=== PATIENT | female | born 1985 | race Caucasian/White ===

== ENCOUNTER 2017-11-01 12:30 | Emergency (ER) | payer BC ==
--- OUTSIDE RECORDS SUMMARY | 2017-11-01 13:59 | XMS REPORT ---
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 ETOH Use Rare Use Of Alcohol Smoking Patient is a former smoker Recreational Drug Use Never Used Drugs Allergies, Adverse Reactions, Alerts Date Description Reaction Status Severity Comments 08/21/2017 NKDA active Medications Medication Date Status Form Strength Qnty SIG Indications Ordering Provider No Active 10/25/2017 Active Unknown Medications Nexplanon Hx Implant 68mg Unknown - 10/24/2017 Vital Signs Date Vital Result Comment 10/25/2017 Weight 208.00 lb Height 65 inches 5'5" BMI (Body Mass Index) 34.6 kg/m2 BP Systolic 104 mmHg BP Diastolic 67 mmHg Heart Rate 67 /min O2 % BldC Oximetry 98 % Body Temperature 97.9 F Pain Level 0 09/13/2017 Weight 217.00 lb Body Temperature 99.1 F 08/21/2017 Weight 217.38 lb Height 65 inches 5'5" BMI (Body Mass Index) 36.2 kg/m2 BP Systolic 119 mmHg BP Diastolic 82 mmHg Heart Rate 72 /min O2 % BldC Oximetry 99 % Body Temperature 98.3 F Pain Level 0 Results Test Date Test Result H/L Range Note Laboratory test 09/04/2017 Surgical Pathology SEE RESULT BELOW 1 finding 1 SEE RESULT BELOW Name: LISA JENSEN : [address]: Joaquín De Santiago MD Acct: [id number] Unit: [id number] AGE: 31 Location: [facility] Re09/04/17 SEX: F Status: REG REF SPEC: [id number] ROBERT: 09/04/[address] [facility] [address]: Joaquín De Santiago MD REQ: [id number] RECD: 09/04/17 STATUS: SOUT _ ORDERED: LEVEL 4 COMMENTS: [id number] FINAL DIAGNOSIS Skin, back, excisional biopsy: -- Compound melanocytic nevus. -- The lesion is excised in the planes of sectioning examined. CLINICAL HISTORY No history given GROSS DESCRIPTION The specimen is received in formalin labeled, Skin Mole on Back, and consists of a 0.6 cm wright-white circular skin punch excised to a depth of 0.6 cm with an eccentric 0.4 x 0.4 cm brown granular lesion. The specimen is trisected and submitted entirely in one cassette. Signed (signature on file) Basilia Marie MD 11/21 1131 END OF REPORT * ML=Testing performed at Main Lab DEPARTMENT OF PATHOLOGY, [address] [place] [address] Tommie Fuentes M.D. Director [facility] # [id number] Procedures Date CPT Code Description Status 09/04/2017 45181 Exc Other Benign Lesion Face,Eyelids,Ears,Nose,Lips Completed 0.5CM Or Less Encounters Type Date Location Provider CPT E/M Dx Office Visit 09/04/2017 10:00a [place] [address] I78.1 L73.2 Office Visit 08/21/2017 8:30a [place] [address] L73.2 I78.1 R23.8 Plan of Care 09/13/2017 - Joaquín De Santiago MDZ48.817 Encntr for surgical aftcr fol surgery on the skin, subcuComments:1) The pathology report was informed.2) The stitches were removed and Neosporin oint and BandAid applied.3) Possible recurrence in future warned.Recommendations:1) KdcrcvzL60.2 Hidradenitis suppurativaFollow up: RTO in a monthRecommendations:1) To avoid self manipulation 2) To wash the axillary skin with soap and water regularly and to keep it dry 3) If the thickening under the surface persist or worsening , might need excision for confirmation of diagnosis .
--- OUTSIDE RECORDS SUMMARY | 2017-11-01 13:59 | XMS REPORT ---
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 Director [facility] # [id number] Procedures Date CPT Code Description Status 09/04/2017 78685 Exc Other Benign Lesion Face,Eyelids,Ears,Nose,Lips Completed 0.5CM Or Less Encounters Type Date Location Provider CPT E/M Dx Office Visit 10/25/2017 8:00a [place] [address] Z48.817 Office Visit 09/04/2017 10:00a [place] [address] I78.1 L73.2 Office Visit 08/21/2017 8:30a [place] [address] L73.2 I78.1 R23.8 Plan of Care 10/25/2017 - Joaquín De Santiago MDZ48.817 Encntr for surgical aftcr fol surgery on the skin, subcuComments:1) The assessment was informed .Follow up:RTO prnRecommendations:1) To avoid squeezing or frequent touch of the skin in the axilla. 2) To continue monitor the skin pigmentations on the back
--- OUTSIDE RECORDS SUMMARY | 2017-11-01 14:00 | XMS REPORT ---
:1985 External Reference #:[id number] Author Organization [employer] [facility] Address [address] [address] Phone [phone] Care Team Providers Name Role Phone Marianna Burton M.D. Primary Care Physician Unavailable Payers Type Date Identification Numbers Payment Provider Subscriber Commercial Effective: Policy Number: [employer] BC/BS Of Lisa Fu 2017 [id number] [facility] PayID: [id number] [address] [address] RACHANA Dahl [address] Medigap Part B Expires: 2017 Policy Number: [id number] Medicaid [place] Lisa Fu PayID: [id number] [address] [place] [address] Commercial Effective: Policy Number: [employer] BC/BS Of Andrew Kramer 2001 [id number] CN Expires: 2004 Group Number: [id number] [address] [address] PayID: [id number] RACHANA Dahl [id number] Health Maintenance Expires: 11/04/2007 Policy Number: Total Care Lisa Fu Organization (HMO) [id number] [facility] PayID: [id number] [place] [address] Problems Date Description Provider Status Onset: 08/02/2001 Screening for malignant neoplasm of cervix Active Onset: 08/02/2001 Contraception care management Active Onset: 08/02/2001 Amenorrhea Active Family History Date Family Member(s) Problem(s) Comments Father Hypertension Mother Noncontributory Grandfather Skin Cancer Social History Type Date Description Comments Marital Status Legal Status: Lives With Children Lives With Spouse Smoke-Free Home is smoke-free Smoke-Free Work is smoke-free Work Status Full-Time Employment Abuse No history of abuse ETOH Use Rarely consumes alcohol Recreational Drug Use Denies Drug Use Smoking Patient is a former smoker quit 06/2017 Daily Caffeine Consumes on average 1 pot of regular coffee per day Daily Caffeine Consumes on average 3 cups of hot tea per day Exercise Type/Frequency Exercises regularly # Partners in a Lifetime 4 STD's No STD History Allergies, Adverse Reactions, Alerts Date Description Reaction Status Severity Comments 05/16/2012 NKDA active Medications Medication Date Status Form Strength Qnty SIG Indications Ordering Provider Diflucan 10/12/ Active Tablets 150mg 1tabs 1 by mouth B37.3 In [facility] 2017 every day Jacqui Damon Caffeine / Active Unknown 0000 / Active Unknown 0000 Keflex 08/01/ Hx Capsules 500mg 28caps four times L08.9 In [facility] 2016 a day Jacqui Damon Nitrofurantoin 10/07/ Hx Capsules 100mg 14caps 1 tab by N39.0 In [facility] Monohydrate/Macr 2014 mouth Jacqui Damon ocrystals twice a day Diflucan 07/28/ Hx Tablets 150mg 1tabs 1 po qd Yousuf, 2012 - Merry 02/16/ e, NIXON 2013 Implanon 06/12/ Hx Implant 68mg In [facility] 2011 Jacqui Damon Multivitamin 05/17/ Hx Yousuf, 2011 LUKASZ Pablo Diflucan 09/08/ Hx Tablets 150mg 2tabs 1 po now Yousuf, 2010 - with one Merry 05/17/ repeat in e, CNM 2011 4 days Cortisporin 09/08/ Hx Cream 0.5-0.5-10 30gm use Yousuf, 2010 - 000 sparingly Merry 05/17/ on inner e, CN 2011 thighs two times a day Urinary Pain / Hx Unknown Relief 0000 Nexplanon / Hx Unknown 0000 Medications Administered in Office Medication Date Status Form Strength Qnty SIG Indications Ordering Provider Injection 06/12 Administered Injection Kraen Medroxyprogesteron /2006 Naomi Walton Acetate For N M Contraceptive Use Immunizations CPT Code Status Date Vaccine Lot # [id number] Given 2005 Influenza Virus Split 3 Yrs And Above Dosage Vital Signs Date Vital Result Comment 10/12/2017 Height 65.25 inches 5'5.25" Weight 217.00 lb BP Systolic 110 mmHg BP Diastolic 66 mmHg BMI (Body Mass Index) 35.8 kg/m2 09/13/2017 Height 65.25 inches 5'5.25" Weight 215.00 lb BP Systolic 120 mmHg BP Diastolic 70 mmHg BMI (Body Mass Index) 35.5 kg/m2 08/14/2017 Height 65.25 inches 5'5.25" Weight 219.00 lb BP Systolic 120 mmHg BP Diastolic 70 mmHg BMI (Body Mass Index) 36.2 kg/m2 08/01/2017 Height 65.25 inches 5'5.25" Weight 214.50 lb BP Systolic 110 mmHg BP Diastolic 58 mmHg BMI (Body Mass Index) 35.4 kg/m2 09/21/2016 Height 65.25 inches 5'5.25" Weight 213.50 lb BP Systolic 120 mmHg BP Diastolic 68 mmHg BMI (Body Mass Index) 35.3 kg/m2 10/07/2015 Height 65.5 inches 5'5.50" Weight 212.00 lb BP Systolic 120 mmHg BP Diastolic 76 mmHg BMI (Body Mass Index) 34.7 kg/m2 07/22/2015 Height 64 inches 5'4" Weight 204.00 lb BP Systolic 120 mmHg BP Diastolic 68 mmHg BMI (Body Mass Index) 35.0 kg/m2 07/13/2015 Height 64 inches 5'4" Weight 207.00 lb BP Systolic 110 mmHg BP Diastolic 60 mmHg BMI (Body Mass Index) 35.5 kg/m2 06/04/2015 Height 64 inches 5'4" Weight 207.00 lb BP Systolic 122 mmHg BP Diastolic 62 mmHg BMI (Body Mass Index) 35.5 kg/m2 02/16/2014 Height 64.75 inches 5'4.75" Weight 192.00 lb BP Systolic 120 mmHg BP Diastolic 60 mmHg BMI (Body Mass Index) 32.2 kg/m2 07/28/2013 Height 64 inches 5'4" Weight 178.00 lb BP Systolic 122 mmHg BP Diastolic 62 mmHg BMI (Body Mass Index) 30.6 kg/m2 11/19/2012 Height 64 inches 5'4" Weight 174.00 lb BP Systolic 102 mmHg BP Diastolic 68 mmHg BMI (Body Mass Index) 29.9 kg/m2 08/30/2012 Height 64 inches 5'4" Weight 174.00 lb BP Systolic 110 mmHg BP Diastolic 58 mmHg BMI (Body Mass Index) 29.9 kg/m2 07/19/2012 Height 64 inches 5'4" Weight 165.00 lb BP Systolic 128 mmHg BP Diastolic 70 mmHg BMI (Body Mass Index) 28.3 kg/m2 07/16/2012 Height 64 inches 5'4" Weight 166.00 lb BP Systolic 120 mmHg BP Diastolic 76 mmHg BMI (Body Mass Index) 28.5 kg/m2 06/12/2012 Height 64 inches 5'4" Weight 166.00 lb BP Systolic 126 mmHg BP Diastolic 72 mmHg BMI (Body Mass Index) 28.5 kg/m2 05/17/2012 Height 64 inches 5'4" Weight 168.00 lb BP Systolic 120 mmHg BP Diastolic 62 mmHg BMI (Body Mass Index) 28.8 kg/m2 Results Test Date Test Result H/L Range Note Laboratory test 09/21/2016 Cytology SEE RESULT BELOW 1 finding Laboratory test 02/16/2014 Thyroid Stim 2.43 uIU/mL 0.49-4.67 finding Hormone Free T4 0.88 ng/dL 0.71-1.85 Laboratory test finding 02/16/2014 Cytology Pap See Note 2 Pap Plus HPV 11/19/2012 CoPathPlus HPV HR- 3 1 SEE RESULT BELOW Name: LISA FU : [address]: Niles Damon MD Acct: [id number] Unit: [id number] AGE: 30 Location: [facility] Re09/21/16 SEX: F Status: REG REF SPEC: [id number] ROBERT: 09/21/16-1205 [facility] DR: In Fifi Damon MD REQ: [id number] RECD: 09/21/16 STATUS: SOUT _ ORDERED: IMAGE ANALYSIS COMMENTS: [id number] FINAL DIAGNOSIS Negative for Intraepithelial lesion or Malignancy A. Ectocervical/Endocervical Specimen Adequacy: Satisfactory of evaluation Transformation zone component identified Patient Information: HPV: Thin Layer Pap Test w/reflex to high risk HPV RNA testing when ASCUS Actual Specimen Date: 09/21/16 LMP If Unknown: none with Nexplanon Signed (signature on file) KASSY Hyde(ASCP) 09/22 1355 This Pap test was evaluated with the assistance of the WellcoinPrep Test Imaging System. Due to cytologic findings at the welder microscope, comprehensive manual rescreening by a Pipe Stress Engineer may be required. The Pap Smear is a screening test designed to aid in the detection of premalignant and malignant conditions of the uterine cervix. It is not a diagnostic procedure and should not be used as the sole means of detecting cervical cancer. Both false- positive and false- negative reports do occur. Depending on your risk status, a Pap smear should be obtained and evaluated every 1-3 years. END OF REPORT * ML=Testing performed at Main Lab DEPARTMENT OF PATHOLOGY, [address] [place] [address] Tommie Fuentes M.D. Director [facility] # [id number] 2 Cytology Laboratory [address] [place] [address], [address] [place] [address] CYTOLOGY REPORT Name: Lisa Servin : 1985 (Age: 28) Sex: F Location: [facility] Med. Rec. # [id number] Date Collected: 02/16/2014 Billing #: [id number] Date Received: 02/16/2014 Requisition # [id number] Physician(s): DEMI TO CNM Source of Specimen: ENDOCERVICAL/ECTOCERVICAL THIN PREP Clinical Information: Date of Last Menstrual Period: None Provided Interpretation: NEGATIVE FOR INTRAEPITHELIAL LESION OR MALIGNANCY. Specimen Adequacy: SATISFACTORY FOR EVALUATION. Additional Findings: ENDOCERVICAL/TRANSFORMATION ZONE PRESENT. dcl Electronic Signature KASSY Caicedo (ASCP) Reported: 02/19/2014 [facility] Outreach Technical Laboratory [facility] ICD-9 Code(s) V76.2 3 Cytology Laboratory [address] [place] [address], [address] [place] [address] CYTOLOGY REPORT Name: Lisa Servin : 1985 (Age: 27) Sex: F Location: [facility] Rec. # [id number] Date Collected: 11/19/2012 Billing #: [id number] Date Received: 11/19/2012 Requisition # [id number] Physician(s): DEMI RUST RN MSN WHNP Source of Specimen: ENDOCERVICAL/ECTOCERVICAL THIN PREP Clinical Information: Date of Last Menstrual Period: 11/19/2012 Menstrual History: Irregular Hormonal History: Contraceptive: Implanon Specimen Adequacy: SATISFACTORY FOR EVALUATION. ADEQUATE ENDOCERVICAL/TRANSFORMATION ZONE. General Categorization: NEGATIVE FOR INTRAEPITHELIAL LESION OR MALIGNANCY. dcl Electronic Signature KASSY Caicedo (ASCP) Reported: 11/21/2012 Also seen by :KASSY Ibarra (ASCP) Cytology Outreach [facility] HPV High Risk Date Ordered: 11/20/2012 Status: Signed Out Date Reported: 11/21/2012 High Risk NEGATIVE (HPV types 16, 18, 31, 33, 35, 39, 45, 51, 52, 56, 58, 59, 66, 68) Cervista HPV HR Electronic Signature KASSY Ibarra (ASCP) Cytology Outreach [facility] ICD-9 Code(s) V72.31 Procedures Date CPT Code Description Status 09/13/2017 49975 Remove Contraceptive Capsule Completed 07/22/2015 99839 Insertion, Non Biodegradable Drug Delivery Implant Completed 07/22/2015 57101 Remove Contraceptive Capsule Completed 07/19/2012 07521 Insertion, Non Biodegradable Drug Delivery Implant Completed 07/19/2012 55425 Remove Contraceptive Capsule Completed 07/13/2010 18065 Colposcopy W/Biopsy (S) Cervix/Endocervical Curettage Completed 07/07/2010 44348 Echography Pelvic Complete Completed 08/05/2009 72278 Insertion, Non Biodegradable Drug Delivery Implant Completed 07/16/2009 25201 Care Completed 06/03/2009 56337 Obstetric Care Routine Completed 06/03/2009 16192 Curettage Completed 05/27/2009 43656 Antepartum Care 7 Or More Visits Completed 05/12/2009 77240 Antepartum Care 7 Or More Visits Completed 04/28/2009 74771 Antepartum Care 7 Or More Visits Completed 04/14/2009 16231 Antepartum Care 7 Or More Visits Completed 03/08/2009 85342 Antepartum Care 7 Or More Visits Completed 02/22/2009 39609 Antepartum Care 7 Or More Visits Completed 02/10/2009 03822 Antepartum Care 7 Or More Visits Completed 01/20/2009 57224 Echography Uterus Complete>14WKS. 0 Days Completed 01/13/2009 03895 Antepartum Care 7 Or More Visits Completed 12/16/2008 53791 Antepartum Care 7 Or More Visits Completed 11/13/2008 48185 Ultrasound < 14 Weeks Single Or First Gestation Completed 08/29/2007 26629 Subcutaneous Or Intramuscular Injection Completed 04/29/2007 39440 Care Only Completed 03/25/2007 88086 Obstetric Care Routine Completed 03/20/2007 11495 Echography Uterus Complete>14WKS. 0 Days Completed 03/12/2007 24217 Non-Stress Test Completed 11/23/2006 43734 Echography Uterus Complete>14WKS. 0 Days Completed 08/16/2006 25808 Ultrasound < 14 Weeks Single Or First Gestation Completed 12/21/2005 21304 Obstetric Care Routine Completed 08/04/2005 05733 Echography Uterus Complete>14WKS. 0 Days Completed 09/23/2004 52355 Echography Pelvic Complete Completed Encounters Type Date Location Provider CPT E/M Dx Office Visit 09/13/2017 10:45a Main Office In [facility] VenusClementina 88374 Z30.09 R20.0 Z30.46 Office Visit 08/14/2017 8:30a [facility] 29842 I88.9 L73.2 Office Visit 08/01/2017 8:30a [facility] 37008 L08.9 Office Visit 09/21/2016 11:30a [facility] 57085 Z30.09 Z01.419 Z64.1 Z12.4 Z30.2 Office Visit 10/07/2015 11:15a [facility] 87497 N39.0 Office Visit 07/22/2015 9:30a Main Office In [facility] VenusClementina 66260 V25.5 V25.43 V25.09 Office Visit 06/04/2015 8:30a Main Office In [place] VenusClementina 89666 V61.5 V25.2 Office Visit 02/16/2014 1:00p Main Office Lian To CNM 04352 V76.2 V72.31 783.1 V25.09 Office Visit 07/28/2013 10:15a Main Office Lian To CNM 34398 616.10 Office Visit 11/19/2012 9:00a Main Office HAYES Davey,MSN,RELIGIOUS ACTIVITIES DIRECTOR 13932 V72.31 V76.2 795.01 009.3 305.1 V25.43 Office Visit 08/30/2012 11:00a Main Office HAYES Davey,MSN,RELIGIOUS ACTIVITIES DIRECTOR 41134 611.79 V25.43 780.79 Office Visit 06/12/2012 8:45a Main Office In [place] VenusClementina 83894 V61.5 V25.2 Office Visit 05/17/2012 1:45p Main Office Lian To CNM 22440 795.06 Office Visit 09/21/2011 8:30a Main Office Lian To CNM 85565 V72.31 V76.2 626.0 Office Visit 09/08/2011 9:30[place] [address] 623.8 788.1 Office Visit 06/28/2010 3:45p Main Office In Fifi Damon M.D. 42993 626.4 626.7 Office Visit 04/21/2010 3:15p Main Office In Fifi Damon M.D. 70854 625.8 626.2 Office Visit 02/01/2010 11:00a Main Office Denise Valle NP,MSN,[facility] 42490 616.10 Office Visit 08/05/2009 11:30a Main Office Demi Rust, RNC,MSN,RELIGIOUS ACTIVITIES DIRECTOR 49921 V25.5 Office Visit 07/16/2009 3:20p Main Office Lian To CNM 02513 V24.2 V25.09 Office Visit 11/17/2008 1:15p Main Office In Fifi Damon M.D. 45049 649.03 V22.1 Office Visit 02/16/2005 10:15a Main Office Chantel Mcintyre M.D. PhD 01896 628.8 Office Visit 01/04/2005 10:45a Main Office In Fifi Damon M.D. 73038 628.8 Office Visit 11/09/2004 4:00p Main Office In Fifi Damon M.D. 20748 628.8 616.10 Office Visit 09/15/2004 1:15p Main Office In Fifi Damon M.D. 95207 628.8 Plan of Care 10/12/2017 - In Fifi Damon M.D.N77.1 Vaginitis, vulvitis and vulvovaginitis in dis classd uecvtcN14.3 Candidiasis of vulva and vaginaNew Medication:Diflucan 150 mg
[2017-11-01 14:06] VITALS: BP 147/75
--- NOTE | 2017-11-01 14:16 | UC ---
Skin Complaint HPI - HPI Summary HPI Summary: has had a itchy rash for a few days neck, abdomen, groin, itchy red---no one else with rash in family is not otherwise ill has no fever - History of Current Complaint Chief Complaint: UCRash Time Seen by Provider: 11/01/17 14:03 Stated Complaint: RASH Hx Obtained From: Patient Hx Last Menstrual Period: 10/19/17 ?: No Onset/Duration: Sudden Onset, Lasting Days - 3 Timing: Constant Onset Severity: Mild Current Severity: Mild Location: Generalized Aggravating Factor(s): Other - heat Alleviating Factor(s): Nothing - has only taken 2 benadryl and 2 does of prednisone Associated Signs & Symptoms: Positive: Rash - Allergy/Home Medications Allergies/Adverse Reactions: Allergies Allergy/AdvReac Type Severity Reaction Status Date / Time seasonal allergy Allergy runny eyes Uncoded 11/01/17 13:58 Home Medications: Home Medications Naproxen Sodium [Naproxen Sodium 220 mg] 440 mg PO BID PRN 11/01/17 [History Confirmed 11/01/17] diPHENhydraMINE PO* [Benadryl PO 25 MG TAB*] 25 mg PO Q6H PRN 11/01/17 [History Confirmed 11/01/17] predniSONE TAB* [Deltasone TAB*] 10 mg PO DAILY 11/01/17 [History Confirmed ] Review of Systems Constitutional: Negative Skin: Rash - itchy, red, macular rash Eyes: Negative ENT: Negative Respiratory: Negative Cardiovascular: Negative Gastrointestinal: Negative Genitourinary: Negative Motor: Negative Neurovascular: Negative Musculoskeletal: Negative Neurological: Negative Psychological: Negative Is Patient Immunocompromised?: No All Other Systems Reviewed And Are Negative: Yes PMH/Surg Hx/FS Hx/Imm Hx Previously Healthy: Yes - Surgical History Surgical History: Yes Surgery Procedure, Year, and Place: tonsils as child, placenta removed after chilbirth - Family History Known Family History: Positive: None - Social History Occupation: Employed Full-time Lives: With Family Alcohol Use: Occasionally Substance Use Type: None Smoking Status (MU): Never Smoked Tobacco Type: Cigarettes Amount Used/How Often: 1/2 PPD Have You Smoked in the Last Year: Yes Household Exposure Type: Cigarettes Physical Exam Triage Information Reviewed: Yes Appearance: Well-Appearing, No Pain Distress, Well-Nourished Vital Signs: Initial Vital Signs Temp 98.7 F 11/01/17 14:02 Pulse 75 11/01/17 14:02 Resp 18 11/01/17 14:02 BP 147/75 11/01/17 14:02 Vital Signs Reviewed: Yes Eye Exam: Normal Eyes: Positive: Conjunctiva Clear ENT Exam: Normal ENT: Positive: Normal ENT inspection, Hearing grossly normal, Pharynx normal. Negative: Nasal congestion, Trismus, Muffled voice, Hoarse voice, Sinus tenderness Dental Exam: Normal Neck exam: Normal Neck: Positive: Supple, Nontender, No Lymphadenopathy Respiratory Exam: Normal Respiratory: Positive: Chest non-tender, Lungs clear, Normal breath sounds, No respiratory distress, No accessory muscle use Cardiovascular Exam: Normal Cardiovascular: Positive: RRR, No Murmur, Pulses Normal, Brisk Capillary Refill Musculoskeletal Exam: Normal Musculoskeletal: Positive: Strength Intact, ROM Intact, No Edema Neurological Exam: Normal Neurological: Positive: Alert, Muscle Tone Normal Psychological Exam: Normal Skin: Positive: Other - macular ramiro rash left wrist, nap of neck abdomen groin Course/Dx - Course Course Of Treatment: prednisone, pepcid, zyrtec, change benadryl to vistaril follow with neuro psych sales specialist - Diagnoses Provider Diagnoses: Idopathic urticaria Discharge - Discharge Plan Condition: Stable Disposition: HOME Prescriptions: Famotidine TAB 40 MG(NF) [Pepcid TAB 40 MG(NF)] 40 mg PO DAILY #14 tab Hydroxyzine Pamoate [Vistaril] 25 - 50 mg PO QID #30 cap Patient Education Materials: Prednisone (By mouth), Urticaria (ED) Referrals: Andrés Diggs MD [Medical Doctor] - 1 Week
== END 2017-11-01 14:39 | disposition home or self-care (01) ==
LOC: UCCORT 12:30
DX: L50.1 Idiopathic urticaria (principal); Z91.048 Other nonmedicinal substance allergy status
CPT/HCPCS: 99212; G0463

== ENCOUNTER 2018-05-02 08:51 | Emergency (ER) | payer BC ==
[2018-05-02 09:09] VITALS: BP 107/68
--- NOTE | 2018-05-02 09:11 | UC ---
Respiratory Complaint HPI - HPI Summary HPI Summary: 32 year old with URI concerns. "Head cold" one week ago; treated with Sudafed and improved for one day before worsening three days ago. Subjective fever, head congestion, hoarse voice, mostly nonproductive and painful cough, myalgias , and chills for three to four days. woks at snf. no fever. [ End ] - History of Current Complaint Chief Complaint: UCRespiratory Stated Complaint: CONGESTION, COUGH Time Seen by Provider: 05/02/18 09:10 Hx Obtained From: Patient Hx Last Menstrual Period: 04/25/18 Onset/Duration: Gradual Onset Timing: Constant Severity Initially: Mild Severity Currently: Moderate Pain Intensity: 5 Character: Cough: Nonproductive Associated Signs And Symptoms: Positive: URI, Nasal Congestion, Hoarseness. Negative: Wheezing - Allergies/Home Medications Allergies/Adverse Reactions: Allergies Allergy/AdvReac Type Severity Reaction Status Date / Time No Known Allergies Allergy Verified 05/02/18 09:03 Home Medications: Home Medications Benzonatate CAP* [Tessalon 100 MG CAP*] 100 - 200 mg PO TID PRN 05/02/18 [ History Confirmed 05/02/18] D-Methorphan/PE/Acetaminophen [Tylenol Cold Multi-Symp Caplet] 1 each PO Q4H PRN 05/02/18 [History Confirmed 05/02/18] GuaiFENesin DM* [Robitussin DM*] 10 ml PO Q4H PRN 05/02/18 [History Confirmed ] Ibuprofen TAB* [Advil TAB*] 800 mg PO Q8H PRN 05/02/18 [History Confirmed ] PMH/Surg Hx/FS Hx/Imm Hx Previously Healthy: Yes - Surgical History Surgical History: Yes Surgery Procedure, Year, and Place: tonsils as child, placenta removed after chilbirth - Family History Known Family History: Positive: None - Social History Occupation: Employed Full-time Lives: With Family Alcohol Use: Rare Substance Use Type: None Smoking Status (MU): Former Smoker Type: Cigarettes Amount Used/How Often: 1/2 PPD Length of Time of Smoking/Using Tobacco: ~1 PPD x 15+ Years Have You Smoked in the Last Year: Yes When Did the Patient Quit Smoking/Using Tobacco: 2017 Household Exposure Type: Cigarettes Review of Systems Constitutional: Fatigue Skin: Negative Eyes: Negative ENT: Sore Throat, Nasal Discharge, Sinus Congestion, Sinus Pain/Tenderness Respiratory: Cough Cardiovascular: Negative Gastrointestinal: Negative Genitourinary: Negative Motor: Negative Neurovascular: Negative Musculoskeletal: Negative Neurological: Negative Psychological: Negative Is Patient Immunocompromised?: No All Other Systems Reviewed And Are Negative: Yes Physical Exam Triage Information Reviewed: Yes Appearance: Well-Appearing, No Pain Distress, Well-Nourished Vital Signs: Initial Vital Signs Temp 98.6 F 05/02/18 09:00 Pulse 80 05/02/18 09:00 Resp 16 05/02/18 09:00 BP 107/68 05/02/18 09:00 Pulse Ox 100 05/02/18 09:00 Eye Exam: Normal ENT Exam: Normal ENT: Positive: TM dull - r>l Dental Exam: Normal Neck exam: Normal Neck: Positive: 1 Respiratory Exam: Normal Cardiovascular Exam: Normal Abdominal Exam: Normal Musculoskeletal Exam: Normal Neurological Exam: Normal Psychological Exam: Normal Skin Exam: Normal UC Diagnostic Evaluation - Laboratory O2 Sat by Pulse Oximetry: 100 Respiratory Course/Dx - Course Course Of Treatment: viral -- supportive treatment at this time. - Differential Dx/Diagnosis Differential Diagnosis/HQI/PQRI: Bronchitis, Influenza, Lower Resp Infection, Sinusitis Provider Diagnoses: URI Discharge - Sign-Out/Discharge Documenting (check all that apply): Discharge/Admit/Transfer - Discharge Plan Condition: Good Disposition: HOME Prescriptions: Albuterol Sulfate [Proventil Hfa] 6.7 gm IH Q4H PRN #1 [id number] PRN Reason: Sob/Wheezing Benzonatate CAP* [Tessalon 100 MG CAP*] 100 mg PO TID PRN #20 cap PRN Reason: Cough Patient Education Materials: Upper Respiratory Infection (ED) Forms: *Work Release Referrals: Marianna Burton MD [Primary Care Provider] - 4 Days - Billing Disposition and Condition Condition: GOOD Disposition: Home
== END 2018-05-02 09:24 | disposition home or self-care (01) ==
LOC: UCCORT 08:51
DX: J06.9 Acute upper respiratory infection, unspecified (principal); Z87.891 Personal history of nicotine dependence
CPT/HCPCS: 99212; G0463

== ENCOUNTER 2018-08-08 11:00 | Emergency (ER) | payer BC ==
[2018-08-08 12:16] VITALS: BP 119/76
--- NOTE | 2018-08-08 12:39 | UC ---
Shoulder Pain HPI - HPI Summary HPI Summary: The patient is a 32-year-old female with left trapezius pain for 2-3 weeks. She is right handed. He does not recall any injury. He has minimal relief with Motrin and heat. Initially she has some pain radiating down her left arm. It is causing some neck pain and a tension headache. She denies any history of neck injury. - History of Current Complaint Chief Complaint: UCUpperExtremity Stated Complaint: NECK, UPPER BACK PAIN Time Seen by Provider: 08/08/18 12:14 Hx Obtained From: Patient Hx Last Menstrual Period: 07/29/18 Onset/Duration: Gradual Onset, Lasting Weeks Timing: Constant Severity Initially: Moderate Severity Currently: Moderate Pain Intensity: 5 Pain Scale Used: 0-10 Numeric Character: Aching, Throbbing, Spasmodic Aggravating Factor(s): Movement Alleviating Factor(s): Rest, OTC Meds Associated Signs And Symptoms: Positive: Negative Related History: Dominant Hand Right Torso: 1 - pain - Allergies/Home Medications Allergies/Adverse Reactions: Allergies Allergy/AdvReac Type Severity Reaction Status Date / Time No Known Allergies Allergy Verified 08/08/18 12:11 Home Medications: Home Medications Methyl Salicylate/Menthol [Muscle Rub Cream] 1 applic TOPICAL SEE INSTRUCTIONS PRN 08/08/18 [History Confirmed 08/08/18] PMH/Surg Hx/FS Hx/Imm Hx Previously Healthy: Yes - Surgical History Surgical History: Yes Surgery Procedure, Year, and Place: tonsils as child, placenta removed after chilbirth - Family History Known Family History: Positive: Hypertension - Social History Alcohol Use: Rare Substance Use Type: None Smoking Status (MU): Former Smoker Type: Cigarettes Amount Used/How Often: 1/2 PPD Length of Time of Smoking/Using Tobacco: ~1 PPD x 15+ Years Have You Smoked in the Last Year: Yes When Did the Patient Quit Smoking/Using Tobacco: 2017 Household Exposure Type: Cigarettes Review of Systems Constitutional: Negative Skin: Negative Eyes: Negative ENT: Negative Respiratory: Negative Cardiovascular: Negative Gastrointestinal: Negative Genitourinary: Negative Motor: Negative Neurovascular: Negative Musculoskeletal: Arthralgia Neurological: Headache Psychological: Negative Is Patient Immunocompromised?: No All Other Systems Reviewed And Are Negative: Yes Physical Exam Triage Information Reviewed: Yes Appearance: Well-Appearing, No Pain Distress, Well-Nourished Vital Signs: Initial Vital Signs Temp 98 F 08/08/18 12:09 Pulse 80 08/08/18 12:09 Resp 16 08/08/18 12:09 BP 119/76 08/08/18 12:09 Pulse Ox 100 08/08/18 12:09 Vital Signs Reviewed: Yes Eyes: Positive: Conjunctiva Clear ENT: Positive: Hearing grossly normal. Negative: Nasal congestion, Nasal drainage, Tonsillar swelling, Tonsillar exudate Neck: Positive: Supple - trapezius, Tenderness @, Other: - decreased ROM Respiratory: Positive: Lungs clear, Normal breath sounds, No respiratory distress, No accessory muscle use Cardiovascular: Positive: RRR, No Murmur Musculoskeletal: Positive: ROM Intact Neurological: Positive: Alert Psychological Exam: Normal Skin Exam: Normal Shoulder Course/Dx - Differential Dx/Diagnosis Provider Diagnoses: left trapesius strain Discharge - Sign-Out/Discharge Documenting (check all that apply): Patient Departure All imaging exams completed and their final reports reviewed: No Studies - Discharge Plan Condition: Stable Disposition: HOME Prescriptions: Cyclobenzaprine TAB* [Flexeril TAB*] 5 mg PO TID PRN #12 tab PRN Reason: Spasms Patient Education Materials: Muscle Strain (ED) Referrals: Marianna Burton MD [Primary Care Provider] - 1 Week Additional Instructions: PT consult aleve 2 pills twice daily for pain muscle relaxant may cause drowsiness - Billing Disposition and Condition Condition: STABLE Disposition: Home
== END 2018-08-08 12:51 | disposition home or self-care (01) ==
LOC: UCCORT 11:00
DX: S29.012A Strain of muscle and tendon of back wall of thorax, initial encounter (principal); Z87.891 Personal history of nicotine dependence
CPT/HCPCS: 99212; G0463

== ENCOUNTER 2018-12-25 12:14 | Emergency (ER) | payer BC ==
[2018-12-25 12:58] VITALS: BP 120/68
--- NOTE | 2018-12-25 13:28 | UC ---
UC General HPI - HPI Summary HPI Summary: headache, bodyaches, fever/chills, cough and head congestion x 3 days. + scratchy throat. 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 - History of Current Complaint Chief Complaint: UCRespiratory Stated Complaint: ST,FEVER,COUGH Time Seen by Provider: 12/25/18 13:22 Hx Obtained From: Patient Hx Last Menstrual Period: 11/16/18 Onset/Duration: Gradual Onset Timing: Constant Pain Intensity: 5 Associated Signs & Symptoms: Negative: Chest Pain, Diarrhea, SOB, Vomiting - Allergy/Home Medications Allergies/Adverse Reactions: Allergies Allergy/AdvReac Type Severity Reaction Status Date / Time No Known Allergies Allergy Verified 12/25/18 12:56 Home Medications: Home Medications Acetaminophen [Acetaminophen Extra Strength] 1,000 mg PO Q6HR PRN 12/25/18 [ History Confirmed 12/25/18] PMH/Surg Hx/FS Hx/Imm Hx - Additional Past Medical History Additional PMH: 5-6 weeks - Surgical History Surgical History: Yes Surgery Procedure, Year, and Place: tonsils as child, placenta removed after chilbirth - Family History Known Family History: Positive: None, Hypertension - Social History Alcohol Use: None Substance Use Type: None Smoking Status (MU): Former Smoker Type: Cigarettes Amount Used/How Often: 1/2 PPD Length of Time of Smoking/Using Tobacco: ~1 PPD x 15+ Years Have You Smoked in the Last Year: Yes When Did the Patient Quit Smoking/Using Tobacco: 2017 Household Exposure Type: Cigarettes Review of Systems All Other Systems Reviewed And Are Negative: Yes Constitutional: Positive: Fever, Chills Skin: Positive: Negative Eyes: Positive: Negative ENT: Positive: Sore Throat - scratchy, Sinus Congestion Respiratory: Positive: Cough Cardiovascular: Positive: Negative Gastrointestinal: Positive: Negative Genitourinary: Positive: Negative Motor: Positive: Negative Neurovascular: Positive: Negative Musculoskeletal: Positive: Myalgia Neurological: Positive: Headache Psychological: Positive: Negative Physical Exam Triage Information Reviewed: Yes Appearance: Well-Appearing Vital Signs: Initial Vital Signs Temp 98.6 F 12/25/18 12:52 Pulse 90 12/25/18 12:52 Resp 16 12/25/18 12:52 BP 120/68 12/25/18 12:52 Pulse Ox 100 12/25/18 12:52 Vital Signs Reviewed: Yes Eyes: Positive: Conjunctiva Clear ENT: Positive: Pharynx normal, TMs normal. Negative: Nasal drainage, Sinus tenderness Neck: Positive: Supple, Nontender, No Lymphadenopathy Respiratory: Positive: Lungs clear, Normal breath sounds, No respiratory distress Cardiovascular: Positive: RRR, No Murmur Abdomen Description: Positive: Nontender, No Organomegaly, Soft Bowel Sounds: Positive: Present Musculoskeletal: Positive: ROM Intact Neurological: Positive: Alert Psychological: Positive: Age Appropriate Behavior Skin Exam: Normal Skin: Negative: Rashes Diagnostics - Laboratory Diagnostic Studies Completed/Ordered: rapid flu=neg. Course/Dx - Differential Dx - Multi-Symptom Differential Diagnoses: Other - non toxic. no concern for pneumonia. the rapid influenza was negative; however, the pt's s/s's are c/w local influenza plus pt is high risk due to thus will tx with Tamiflu. also, the influenza test is not 100%. - Diagnoses Provider Diagnosis: Influenza-like illness Discharge - Sign-Out/Discharge Documenting (check all that apply): Patient Departure All imaging exams completed and their final reports reviewed: No Studies - Discharge Plan Condition: Stable Disposition: HOME Prescriptions: Oseltamivir CAP* [Tamiflu CAP*] 75 mg PO BID 5 Days #10 cap Patient Education Materials: Influenza (DC) Forms: *Work Release Referrals: Marianna Burton MD [Primary Care Provider] - 5 Days - Billing Disposition and Condition Condition: STABLE Disposition: Home
[2018-12-25 13:47] LABS: Influenza A Molecular NEGATIVE (Negative); Influenza B Molecular NEGATIVE (Negative)
== END 2018-12-25 14:19 | disposition home or self-care (01) ==
LOC: UCCORT 12:14
DX: O99.511 Diseases of the respiratory system complicating pregnancy, first trimester (principal); J11.1 Influenza due to unidentified influenza virus with other respiratory manifestations; Z3A.01 Less than 8 weeks gestation of pregnancy; Z87.891 Personal history of nicotine dependence
CPT/HCPCS: 99212; G0463

== ENCOUNTER 2019-12-16 08:07 | Emergency (ER) | payer BC, OTHER ==
[2019-12-16 08:45] VITALS: BP 117/73
--- NOTE | 2019-12-16 08:57 | UC ---
Respiratory Complaint HPI - HPI Summary HPI Summary: cough x 4 days cough is productive with yellow sputum , worse with deep breathing better with rest, , + fever, chills, sore throat, body aches - History of Current Complaint Chief Complaint: UCRespiratory Stated Complaint: FEVER/COUGH Time Seen by Provider: 12/16/19 08:40 Hx Obtained From: Patient Hx Last Menstrual Period: "the beginning of this month" ?: No Onset/Duration: Gradual Onset, Lasting Days - 4, Still Present Timing: Constant Severity Initially: Moderate Severity Currently: Moderate Pain Intensity: 5 Character: Cough: Productive Aggravating Factors: Exertion, Deep Breaths Associated Signs And Symptoms: Positive: Fever, Chills, URI, Nasal Congestion. Negative: Wheezing - Allergies/Home Medications Allergies/Adverse Reactions: Allergies Allergy/AdvReac Type Severity Reaction Status Date / Time No Known Allergies Allergy Verified 12/16/19 08:40 Home Medications: Home Medications D-Methorphan/PE/Acetaminophen [Vicks Dayquil Cold & Flu] 2 cap PO Q6H PRN [History Confirmed 12/16/19] Ibuprofen TAB* [Advil TAB*] 800 mg PO Q8H PRN 12/16/19 [History Confirmed ] PMH/Surg Hx/FS Hx/Imm Hx Previously Healthy: Yes - Surgical History Surgical History: Yes Surgery Procedure, Year, and Place: tonsils as child, placenta removed after chilbirth - Family History Known Family History: Positive: None, Hypertension - Social History Alcohol Use: None Substance Use Type: None Smoking Status (MU): Former Smoker Type: Cigarettes Amount Used/How Often: 1/2 PPD Length of Time of Smoking/Using Tobacco: ~1 PPD x 15+ Years Have You Smoked in the Last Year: Yes When Did the Patient Quit Smoking/Using Tobacco: 2017 Household Exposure Type: Cigarettes Review of Systems All Other Systems Reviewed And Are Negative: Yes Constitutional: Positive: Fever, Chills, Fatigue Skin: Positive: Negative Eyes: Positive: Negative ENT: Positive: Sore Throat, Nasal Discharge Respiratory: Positive: Cough Cardiovascular: Positive: Negative Is Patient Immunocompromised?: No Physical Exam Triage Information Reviewed: Yes Appearance: Well-Appearing, No Pain Distress, Well-Nourished Vital Signs: Initial Vital Signs Temp 98.7 F 12/16/19 08:37 Pulse 86 12/16/19 08:37 Resp 16 12/16/19 08:37 BP 117/73 12/16/19 08:37 Pulse Ox 99 12/16/19 08:37 Eyes: Positive: Conjunctiva Clear ENT Exam: Normal ENT: Positive: Normal ENT inspection, Hearing grossly normal, Pharynx normal, Nasal congestion, TMs normal Neck: Positive: Supple, Nontender, No Lymphadenopathy Respiratory: Positive: Chest non-tender, Lungs clear, Normal breath sounds, No respiratory distress Cardiovascular: Positive: RRR, No Murmur, Pulses Normal Abdominal Exam: Normal Skin Exam: Normal Respiratory Course/Dx - Differential Dx/Diagnosis Provider Diagnosis: Viral illness Discharge ED - Sign-Out/Discharge Documenting (check all that apply): Patient Departure All imaging exams completed and their final reports reviewed: No Studies - Discharge Plan Condition: Stable Disposition: HOME Patient Education Materials: Viral Syndrome (ED) Forms: *Work Release Referrals: La Oconnell MD [Primary Care Provider] - If Needed - Billing Disposition and Condition Condition: STABLE Disposition: Home
== END 2019-12-16 08:58 | disposition home or self-care (01) ==
LOC: UCCORT 08:07
DX: B34.9 Viral infection, unspecified (principal); R05 Cough; J02.9 Acute pharyngitis, unspecified; R09.81 Nasal congestion; R53.83 Other fatigue; Z87.891 Personal history of nicotine dependence
CPT/HCPCS: 99211; G0463